=== PATIENT | female | born 1985 | race Native Hawaiian/Other Pacific Islander ===

== ENCOUNTER 2017-05-03 21:33 | Emergency (ER) | payer OTHER ==
[~2017-05-03] VITALS: Ht 172.7 cm; Wt 128.4 kg
== END 2017-05-03 22:43 | disposition home or self-care (01) ==
LOC: ED 21:33
DX: J06.9 Acute upper respiratory infection, unspecified (principal); H83.2X3 Labyrinthine dysfunction, bilateral
CPT/HCPCS: 99282; Q0177